=== PATIENT | male | born 2000 | race Hispanic/Latino ===

== ENCOUNTER 2023-11-17 08:10 | Emergency (ER) | payer OTHER ==
[~2023-11-17] VITALS: Ht 172.7 cm; Wt 61.2 kg
[2023-11-17 08:35] VITALS: PULSE 77; RESP 16; TEMP 98.5; O2SAT 100
[2023-11-17 10:42] LABS: BILIRUBIN,URINE NEGATIVE (NEGATIVE); CLARITY,URINE TURBID (CLEAR); COLOR,URINE YELLOW (YELLOW); GLUCOSE, URINE NEGATIVE (NEGATIVE); KETONES,URINE NEGATIVE (NEGATIVE); LEUKOCYTE ESTERASE ,URINE SMALL (NEGATIVE); NITRITE,URINE POSITIVE (NEGATIVE); PH,URINE 8.5 (5 - 7); PROTEIN,URINE DIPSTICK >=300 (NEGATIVE); URINE UROBILINOGEN 0.2 mg/dL (0.2 - 1)
[2023-11-17] MEDS ORDERED: CEFDINIR300 MG PO (10:42)
[2023-11-17 10:56] LABS: BACTERIA,URINE MANY /HPF
[2023-11-17 10:57] LABS: AMORPHOUS SEDIMENT,URINE FEW (FEW); EPITHELIAL CELLS,URINE FEW /LPF; RBC,URINE 21-50 /HPF (0-5)
== END 2023-11-17 11:15 | disposition home or self-care (01) ==
LOC: ER 08:18
DX: R31.9 Hematuria, unspecified (principal); N39.0 Urinary tract infection, site not specified; G82.20 Paraplegia, unspecified
CPT/HCPCS: 51700; 81001; 87086; 87186; 99283

== ENCOUNTER 2023-12-09 16:53 | Emergency (ER) | payer OTHER ==
[~2023-12-09] VITALS: Ht 172.7 cm; Wt 61.2 kg
[~2023-12-09 16:53] MED LIST: CEFDINIR300 MG PO
[2023-12-09] MEDS ORDERED: CEFTRIAXONE 1 GM VIAL IV ONE (17:15)
[2023-12-09 17:47] LABS: BASOPHILS # (AUTO) 0.1 (0.0-0.1); BASOPHILS % 0.3 % (0.0-1.0); EOSINOPHILS # (AUTO) 0.3 (0.0-0.4); EOSINOPHILS % 1.8 % (0.0-6.0); HEMATOCRIT 47.3 % (38.2-49.6); HEMOGLOBIN 16.1 g/dL (14.0-18.0); LYMPHOCYTES # (AUTO) 1.4 (1.0-3.2); LYMPHOCYTES % 8.6 % (18.0-39.1); MEAN CORPUSCULAR HEMOGLOBIN 29.4 pg (28-32); MEAN CORPUSCULAR VOLUME 86.5 fL (81-99); MONOCYTES # (AUTO) 0.8 (0.2-0.8); MONOCYTES % 4.9 % (4.4-11.3); NEUTROPHILS # (AUTO) 13.3 (2.1-6.9); NEUTROPHILS % 83.7 % (38.7-80.0); PLATELET COUNT 283 x10e3/uL (140-360); RED BLOOD COUNT 5.47 x10e6/uL (4.3-5.7); RED CELL DISTRIBUTION WIDTH 12.9 % (11.7-14.4); WHITE BLOOD COUNT 15.86 x10e3/uL (4.8-10.8)
[2023-12-09 18:11] LABS: ALBUMIN 4.6 g/dL (3.5-5.0); ALBUMIN/GLOBULIN RATIO 1.4 (0.8-2.0); BILIRUBIN,TOTAL 0.7 mg/dL (0.2-1.2); CREATININE, SERUM 0.98 mg/dL (0.72-1.25); TOTAL PROTEIN 7.9 g/dL (6.5-8.1)
[2023-12-09 18:15] LABS: INR 0.92; PROTHROMBIN TIME 12.8 seconds (11.9-14.5)
[2023-12-09 18:16] LABS: PARTIAL THROMBOPLASTIN TIME 25.2 seconds (23.8-35.5)
[2023-12-09] MEDS: SODIUM CHLORIDE 0.9% 1000ML 1,000 ML IV STA ×2 (18:33→20:18)
[2023-12-09] MEDS: ACETAMINOPHEN 325 MG TAB PO ONE (18:33)
[2023-12-09 19:18] LABS: BILIRUBIN,URINE NEGATIVE (NEGATIVE); CLARITY,URINE TURBID (CLEAR); COLOR,URINE RED (YELLOW); GLUCOSE, URINE NEGATIVE (NEGATIVE); KETONES,URINE 1+ (NEGATIVE); LEUKOCYTE ESTERASE ,URINE LARGE (NEGATIVE); NITRITE,URINE NEGATIVE (NEGATIVE); PH,URINE 8.5 (5 - 7); PROTEIN,URINE DIPSTICK 2+ (NEGATIVE); URINE UROBILINOGEN 0.2 mg/dL (0.2 - 1)
[2023-12-09 19:19] LABS: BACTERIA,URINE MODERATE /HPF; RBC,URINE >50 /HPF (0-5)
[2023-12-09] MEDS ORDERED: AMOX TR-K CLV1 EAC2 PO (20:04)
[2023-12-09 20:19] VITALS: PULSE 108; RESP 19; TEMP 102.9
[2023-12-09] MEDS ORDERED: SODIUM CHLORIDE 0.9% 1000ML 1,000 ML ONE (20:19)
[2023-12-09] MEDS: IBUPROFEN 600 MG TAB PO STA (20:21)
[2023-12-09 22:12] VITALS: BP 104/57; PULSE 98; RESP 17; TEMP 100; O2SAT 97
== END 2023-12-09 23:16 | disposition home or self-care (01) ==
LOC: ER 17:12
DX: Z46.6 Encounter for fitting and adjustment of urinary device (principal); N39.0 Urinary tract infection, site not specified; R31.9 Hematuria, unspecified; R53.1 Weakness; G82.20 Paraplegia, unspecified
CPT/HCPCS: 36415; 51702; 80053; 81001; 83605; 85025; 85610; 85730; 87040; 87086; 87186; 99284; J2543; J7030; 51700

== ENCOUNTER 2024-01-02 18:35 | Emergency (ER) | payer OTHER ==
[~2024-01-02] VITALS: Ht 172.7 cm; Wt 61.2 kg
[~2024-01-02 18:35] MED LIST changes: +AMOX TR-K CLV1 EAC2 PO
[2024-01-02 18:59] VITALS: PULSE 109; RESP 16; TEMP 98.9
[2024-01-02] MEDS ORDERED: CEFDINIR300 MG PO (19:58)
[2024-01-02 19:59] LABS: BILIRUBIN,URINE NEGATIVE (NEGATIVE); CLARITY,URINE TURBID (CLEAR); COLOR,URINE YELLOW (YELLOW); GLUCOSE, URINE NEGATIVE (NEGATIVE); KETONES,URINE NEGATIVE (NEGATIVE); LEUKOCYTE ESTERASE ,URINE LARGE (NEGATIVE); NITRITE,URINE POSITIVE (NEGATIVE); PH,URINE 8.5 (5 - 7); PROTEIN,URINE DIPSTICK >=300 (NEGATIVE); URINE UROBILINOGEN 0.2 mg/dL (0.2 - 1)
[2024-01-02 20:12] LABS: AMORPHOUS SEDIMENT,URINE MODERATE (FEW); BACTERIA,URINE MODERATE /HPF
[2024-01-02 20:35] VITALS: BP 113/71; PULSE 100; RESP 16; TEMP 98.7; O2SAT 100
== END 2024-01-02 20:28 | disposition home or self-care (01) ==
LOC: ER 19:35
DX: Z46.6 Encounter for fitting and adjustment of urinary device (principal); R11.0 Nausea; R42 Dizziness and giddiness; G82.20 Paraplegia, unspecified
CPT/HCPCS: 51700; 81001; 87086; 87186; 99283

== ENCOUNTER 2024-02-21 21:41 | Emergency (ER) | payer OTHER ==
[~2024-02-21] VITALS: Ht 172.7 cm; Wt 61.2 kg
[2024-02-21 23:01] VITALS: PULSE 81; RESP 20; TEMP 98.5
[2024-02-21 23:38] LABS: BASOPHILS % 0.3 % (0.0-1.0); EOSINOPHILS # (AUTO) 0.2 (0.0-0.4); HEMOGLOBIN 16.7 g/dL (14.0-18.0); LYMPHOCYTES # (AUTO) 2.1 (1.0-3.2); LYMPHOCYTES % 17.6 % (18.0-39.1); MEAN CORPUSCULAR HGB CONC 34.1 g/dL (31-35); MEAN CORPUSCULAR VOLUME 88.1 fL (81-99); MONOCYTES # (AUTO) 0.6 (0.2-0.8); MONOCYTES % 5.4 % (4.4-11.3); NEUTROPHILS # (AUTO) 8.8 (2.1-6.9); NEUTROPHILS % 74.4 % (38.7-80.0); PLATELET COUNT 235 x10e3/uL (140-360); RED BLOOD COUNT 5.56 x10e6/uL (4.3-5.7); RED CELL DISTRIBUTION WIDTH 12.7 % (11.7-14.4); WHITE BLOOD COUNT 11.79 x10e3/uL (4.8-10.8)
[2024-02-22 00:24] LABS: CLARITY,URINE SL CLOUDY (CLEAR); COLOR,URINE YELLOW (YELLOW)
[2024-02-22 00:25] LABS: BILIRUBIN,URINE NEGATIVE (NEGATIVE); GLUCOSE, URINE NEGATIVE (NEGATIVE); KETONES,URINE NEGATIVE (NEGATIVE); LEUKOCYTE ESTERASE ,URINE MODERATE (NEGATIVE); NITRITE,URINE POSITIVE (NEGATIVE); PH,URINE 6 (5 - 7); PROTEIN,URINE DIPSTICK NEGATIVE (NEGATIVE); URINE UROBILINOGEN 0.2 mg/dL (0.2 - 1); WBC,URINE (MAN) >50 /HPF (0-5)
[2024-02-22 00:26] LABS: BACTERIA,URINE MANY /HPF; EPITHELIAL CELLS,URINE FEW /LPF
[2024-02-22 00:52] LABS: ANION GAP 17.8 mmol/L (8-16); CALCIUM 9.6 mg/dL (8.4-10.2); CREATININE, SERUM 0.8 mg/dL (0.72-1.25); POTASSIUM 3.8 mmol/L (3.5-5.1)
[2024-02-22] MEDS ORDERED: CEFDINIR300 MG PO (01:00)
[2024-02-22] MEDS ORDERED: CEFTRIAXONE 1 GM VIAL ONE (01:05)
[2024-02-22 01:29] VITALS: BP 123/77; PULSE 59; RESP 17; TEMP 98.2; O2SAT 100
== END 2024-02-22 01:35 | disposition home or self-care (01) ==
LOC: ER 21:50
DX: R39.198 Other difficulties with micturition (principal); N39.0 Urinary tract infection, site not specified; G82.20 Paraplegia, unspecified; Z87.442 Personal history of urinary calculi
CPT/HCPCS: 36415; 80048; 81001; 83880; 85025; 87086; 87186; 99283; J0696

== ENCOUNTER 2024-06-09 09:11 | Inpatient (IN) | payer OTHER ==
[~2024-06-09] VITALS: Ht 172.7 cm; Wt 56.7 kg
[2024-06-09] VITALS (7 sets, daily range): BP systolic 110–116; BP diastolic 64–70; PULSE 68–75; RESP 16–21; TEMP 98–98.4; O2SAT 96–99
[2024-06-09 11:02] LABS: BASOPHILS # (AUTO) 0.1 (0.0-0.1); BASOPHILS % 0.2 % (0.0-1.0); EOSINOPHILS % 0.1 % (0.0-6.0); HEMATOCRIT 45.3 % (38.2-49.6); HEMOGLOBIN 15.7 g/dL (14.0-18.0); LYMPHOCYTES # (AUTO) 2.2 (1.0-3.2); LYMPHOCYTES % 9.9 % (18.0-39.1); MEAN CORPUSCULAR HEMOGLOBIN 30.5 pg (28-32); MEAN CORPUSCULAR HGB CONC 34.7 g/dL (31-35); MONOCYTES # (AUTO) 1.3 (0.2-0.8); MONOCYTES % 5.8 % (4.4-11.3); NEUTROPHILS # (AUTO) 18.6 (2.1-6.9); NEUTROPHILS % 83.2 % (38.7-80.0); PLATELET COUNT 200 x10e3/uL (140-360); RED BLOOD COUNT 5.15 x10e6/uL (4.3-5.7); RED CELL DISTRIBUTION WIDTH 12.7 % (11.7-14.4); WHITE BLOOD COUNT 22.36 x10e3/uL (4.8-10.8)
[2024-06-09] MEDS: SODIUM CHLORIDE 0.9% 1000ML 2,000 ML IV SCH (11:16)
[2024-06-09 11:18] LABS: INR 1.01; PARTIAL THROMBOPLASTIN TIME 26.5 seconds (23.8-35.5); PROTHROMBIN TIME 13.9 seconds (11.9-14.5)
[2024-06-09 11:22] LABS: CLARITY,URINE SL CLOUDY (CLEAR); COLOR,URINE YELLOW (YELLOW); GLUCOSE, URINE NEGATIVE (NEGATIVE); LEUKOCYTE ESTERASE ,URINE SMALL (NEGATIVE); NITRITE,URINE POSITIVE (NEGATIVE); PH,URINE 5.5 (5 - 7); PROTEIN,URINE DIPSTICK 2+ (NEGATIVE)
[2024-06-09 11:23] LABS: BILIRUBIN,URINE NEGATIVE (NEGATIVE); KETONES,URINE TRACE (NEGATIVE); URINE UROBILINOGEN 0.2 mg/dL (0.2 - 1)
[2024-06-09 11:25] LABS: ALBUMIN 4.6 g/dL (3.5-5.0); ALBUMIN/GLOBULIN RATIO 1.7 (0.8-2.0); ANION GAP 15.7 mmol/L (8-16); BILIRUBIN,TOTAL 1.2 mg/dL (0.2-1.2); CALCIUM 9.2 mg/dL (8.4-10.2); CREATININE, SERUM 0.81 mg/dL (0.72-1.25); POTASSIUM 3.7 mmol/L (3.5-5.1); TOTAL PROTEIN 7.3 g/dL (6.5-8.1)
[2024-06-09 11:49] LABS: BACTERIA,URINE FEW /HPF; EPITHELIAL CELLS,URINE RARE /LPF; RBC,URINE 0-5 /HPF (0-5); WBC,URINE (MAN) >50 /HPF (0-5)
[2024-06-09 12:26] LABS: BAND NEUTROPHILS % (MANUAL) 1 %; LYMPHOCYTES % (MANUAL) 9 % (19-48); MONOCYTES % (MANUAL) 7 % (3.4-9.0); NEUTROPHILS % (MANUAL) 79 % (40-74); PLATELET ESTIMATE ADEQUATE; PLATELET MORPHOLOGY COMMENT NORMAL; RBC MORPHOLOGY COMMENT NORMAL; REACTIVE LYMPHOCYTES 4
[2024-06-09] MEDS ORDERED: SODIUM CHLORIDE FLUSH 10 ML SYR INJ PRN (13:45)
[2024-06-09] MEDS ORDERED: ONDANSETRON HCL INJ 2MG/ML 2ML 2 MG/ML VIAL IV PRN ×2 (13:45→14:00)
[2024-06-09] MEDS ORDERED: IOPAMIDOL 370 MG/ML 100 ML INFUS..BTL INJ ONE (13:51)
[2024-06-09] MEDS ORDERED: BENZONATATE 100 MG CAP PO PRN (14:00)
[2024-06-09] MEDS ORDERED: SIMETHICONE 80 MG CHEW PO PRN (14:00)
[2024-06-09] MEDS ORDERED: LIDOCAINE 4% PATCH TP PRN (14:00)
[2024-06-09] MEDS ORDERED: HYDROCODONE/APAP 5MG-325MG TAB PO PRN (14:00)
[2024-06-09] MEDS ORDERED: DEXTROSE 50% SYRINGE 50 ML IV PRN (14:00)
[2024-06-09] MEDS ORDERED: POTASSIUM CHLORIDE 20 MEQ TAB CR PO PRN (14:00)
[2024-06-09] MEDS ORDERED: HYDRALAZINE HCL 20 MG/ML VIAL IV PRN (14:00)
[2024-06-09] MEDS ORDERED: ACETAMINOPHEN 325 MG TAB PO PRN (14:00)
[2024-06-09] MEDS ORDERED: DIPHENHYDRAMINE HCL 25 MG CAP PO PRN (14:00)
[2024-06-09] MEDS ORDERED: ALBUTEROL/IPRATROPIUM 3 ML NEB NEB PRN (14:00)
[2024-06-09] MEDS ORDERED: DOCUSATE SODIU100 MG PO (16:16)
[2024-06-09] MEDS ORDERED: SENNA8.6 MG PO (16:16)
[2024-06-09] MEDS ORDERED: ASPIRIN325 MG PO (16:16)
[2024-06-09] MEDS ORDERED: VITAMIN D250 MCG PO (16:16)
[2024-06-09] MEDS: ENOXAPARIN SOD INJ 40 MG/0.4 ML SYR SC SCH (16:45)
[2024-06-09] MEDS: SODIUM CHLORIDE 0.9% 1000ML 1,000 ML IV SCH (16:45)
[2024-06-09] MEDS: CEFEPIME 2 GM in SODIUM CHLORIDE 0.9% 100 ML IV SCH (17:33)
[2024-06-09] MEDS ORDERED: MELATONIN 5 MG TABLET PO PRN (21:00)
[2024-06-09] MEDS: BISACODYL 10 MG SUPP PR ONE (23:40)
[2024-06-09] MEDS: BISACODYL 10 MG SUPP PR STA (23:40)
[2024-06-10] VITALS (10 sets, daily range): BP systolic 101–113; BP diastolic 61–70; PULSE 63–86; RESP 17–20; TEMP 97.4–98.6; O2SAT 97–100
[2024-06-10 06:57] LABS: BASOPHILS # (AUTO) 0.1 (0.0-0.1); BASOPHILS % 0.4 % (0.0-1.0); EOSINOPHILS # (AUTO) 0.2 (0.0-0.4); EOSINOPHILS % 1.2 % (0.0-6.0); HEMATOCRIT 38.4 % (38.2-49.6); HEMOGLOBIN 13.1 g/dL (14.0-18.0); LYMPHOCYTES # (AUTO) 2.8 (1.0-3.2); LYMPHOCYTES % 21.4 % (18.0-39.1); MEAN CORPUSCULAR HEMOGLOBIN 30.4 pg (28-32); MEAN CORPUSCULAR HGB CONC 34.1 g/dL (31-35); MEAN CORPUSCULAR VOLUME 89.1 fL (81-99); MONOCYTES # (AUTO) 0.7 (0.2-0.8); MONOCYTES % 5.4 % (4.4-11.3); NEUTROPHILS # (AUTO) 9.2 (2.1-6.9); NEUTROPHILS % 71.2 % (38.7-80.0); PLATELET COUNT 162 x10e3/uL (140-360); RED BLOOD COUNT 4.31 x10e6/uL (4.3-5.7); RED CELL DISTRIBUTION WIDTH 12.7 % (11.7-14.4)
[2024-06-10 07:23] LABS: ALBUMIN 3.6 g/dL (3.5-5.0); ALBUMIN/GLOBULIN RATIO 1.6 (0.8-2.0); ANION GAP 12.1 mmol/L (8-16); BILIRUBIN,TOTAL 0.7 mg/dL (0.2-1.2); CALCIUM 8.8 mg/dL (8.4-10.2); CREATININE, SERUM 0.71 mg/dL (0.72-1.25); POTASSIUM 4.1 mmol/L (3.5-5.1); TOTAL PROTEIN 5.9 g/dL (6.5-8.1)
[2024-06-10] MEDS: PANTOPRAZOLE SOD 40 MG TABEC PO SCH (08:42)
[2024-06-10] MEDS: DOCUSATE SODIUM 100 MG CAP PO PRN (08:42)
[2024-06-10] MEDS: DOCUSATE SODIUM 100 MG CAP PO SCH (14:46)
[2024-06-10] MEDS: BISACODYL 10 MG SUPP PR SCH (20:53)
[2024-06-11] VITALS (11 sets, daily range): BP systolic 103–113; BP diastolic 61–75; PULSE 54–112; RESP 16–19; TEMP 98–98.9; O2SAT 98–100
[2024-06-11 06:56] LABS: BASOPHILS % 0.4 % (0.0-1.0); EOSINOPHILS # (AUTO) 0.2 (0.0-0.4); EOSINOPHILS % 2.1 % (0.0-6.0); HEMATOCRIT 37.6 % (38.2-49.6); HEMOGLOBIN 13.2 g/dL (14.0-18.0); LYMPHOCYTES # (AUTO) 1.9 (1.0-3.2); LYMPHOCYTES % 25.1 % (18.0-39.1); MEAN CORPUSCULAR HEMOGLOBIN 30.3 pg (28-32); MEAN CORPUSCULAR HGB CONC 35.1 g/dL (31-35); MEAN CORPUSCULAR VOLUME 86.2 fL (81-99); MONOCYTES # (AUTO) 0.5 (0.2-0.8); MONOCYTES % 6.4 % (4.4-11.3); NEUTROPHILS % 65.2 % (38.7-80.0); PLATELET COUNT 161 x10e3/uL (140-360); RED BLOOD COUNT 4.36 x10e6/uL (4.3-5.7); RED CELL DISTRIBUTION WIDTH 12.5 % (11.7-14.4); WHITE BLOOD COUNT 7.65 x10e3/uL (4.8-10.8)
[2024-06-11 07:31] LABS: ANION GAP 11.5 mmol/L (8-16); CALCIUM 8.5 mg/dL (8.4-10.2); CREATININE, SERUM 0.63 mg/dL (0.72-1.25); POTASSIUM 3.5 mmol/L (3.5-5.1)
[2024-06-11] MEDS: ASPIRIN 325 MG TAB PO SCH (08:29)
[2024-06-11] MEDS: SENNOSIDES 8.6 MG TAB PO SCH (08:29)
[2024-06-11] MEDS: DOCUSATE SODIUM 100 MG CAP PO SCH (10:08)
[2024-06-12] VITALS (7 sets, daily range): BP systolic 105–115; BP diastolic 64–75; PULSE 49–78; RESP 16–18; TEMP 97.5–98.2; O2SAT 97–100
[2024-06-12] MEDS ORDERED: MEROPENEM1 GM IM/IV (14:26)
== END 2024-06-12 18:15 | disposition home health service (06) | DRG 698 ==
LOC: ER 10:20 → ERHOLD 13:45 → MED/SURG3 16:43 → OBSVTOIN 06-12 11:05
PROVIDERS: ADMIT Internal Medicine; ATTEND Internal Medicine
PROC: 02HV33Z Insertion of Infusion Device into Superior Vena Cava, Percutaneous Approach (ICD-10-PCS; principal; 2024-06-11)
DX: T83.518A Infection and inflammatory reaction due to other urinary catheter, initial encounter (principal); A41.51 Sepsis due to Escherichia coli [E. coli]; Z16.12 Extended spectrum beta lactamase (ESBL) resistance; N39.0 Urinary tract infection, site not specified; Z16.24 Resistance to multiple antibiotics; N12 Tubulo-interstitial nephritis, not specified as acute or chronic; G82.20 Paraplegia, unspecified; S24.109S Unspecified injury at unspecified level of thoracic spinal cord, sequela; N31.9 Neuromuscular dysfunction of bladder, unspecified; V89.9XXS Person injured in unspecified vehicle accident, sequela; Z98.1 Arthrodesis status; Z79.82 Long term (current) use of aspirin; F17.200 Nicotine dependence, unspecified, uncomplicated; Y84.6 Urinary catheterization as the cause of abnormal reaction of the patient, or of later complication, without mention of misadventure at the time of the procedure
CPT/HCPCS: 36415; 36568; 72132; 74177; 80048; 80053; 81001; 83605; 85025; 85610; 85730; 87040; 87086; 87186; 93005; 94799; 99284; G0378; J0692; J0696; J1650; J2185; J7030; J7050; Q9967

== ENCOUNTER 2024-06-28 16:10 | Emergency (ER) | payer OTHER ==
[~2024-06-28] VITALS: Ht 172.7 cm; Wt 56.7 kg
[~2024-06-28 16:10] MED LIST changes: +ASPIRIN325 MG PO; +DOCUSATE SODIU100 MG PO; +MEROPENEM1 GM IM/IV; +SENNA8.6 MG PO; +VITAMIN D250 MCG PO
[2024-06-28 16:31] VITALS: PULSE 69; RESP 16; TEMP 97.8; O2SAT 99
[2024-06-28 16:56] LABS: BASOPHILS % 0.6 % (0.0-1.0); EOSINOPHILS # (AUTO) 0.2 (0.0-0.4); EOSINOPHILS % 2.6 % (0.0-6.0); HEMATOCRIT 46.4 % (38.2-49.6); HEMOGLOBIN 16.3 g/dL (14.0-18.0); LYMPHOCYTES # (AUTO) 2.1 (1.0-3.2); LYMPHOCYTES % 31.8 % (18.0-39.1); MEAN CORPUSCULAR HEMOGLOBIN 30.1 pg (28-32); MEAN CORPUSCULAR HGB CONC 35.1 g/dL (31-35); MEAN CORPUSCULAR VOLUME 85.8 fL (81-99); MONOCYTES # (AUTO) 0.3 (0.2-0.8); MONOCYTES % 4.3 % (4.4-11.3); NEUTROPHILS # (AUTO) 3.9 (2.1-6.9); NEUTROPHILS % 60.5 % (38.7-80.0); PLATELET COUNT 264 x10e3/uL (140-360); RED BLOOD COUNT 5.41 x10e6/uL (4.3-5.7); RED CELL DISTRIBUTION WIDTH 12.5 % (11.7-14.4); WHITE BLOOD COUNT 6.47 x10e3/uL (4.8-10.8)
[2024-06-28 17:13] LABS: INR 0.95; PROTHROMBIN TIME 13.3 seconds (11.9-14.5)
[2024-06-28] MEDS ORDERED: IOPAMIDOL 370 MG/ML 100 ML INFUS..BTL INJ ONE (17:13)
[2024-06-28 17:14] LABS: PARTIAL THROMBOPLASTIN TIME 25.7 seconds (23.8-35.5)
[2024-06-28] MEDS: ONDANSETRON HCL INJ 2MG/ML 2ML 2 MG/ML VIAL IV STA (17:16)
[2024-06-28] MEDS: SODIUM CHLORIDE 0.9% 1000ML 1,000 ML IV STA (17:16)
[2024-06-28 17:18] LABS: BILIRUBIN,URINE NEGATIVE (NEGATIVE); CLARITY,URINE CLOUDY (CLEAR); COLOR,URINE YELLOW (YELLOW); GLUCOSE, URINE NEGATIVE (NEGATIVE); KETONES,URINE NEGATIVE (NEGATIVE); LEUKOCYTE ESTERASE ,URINE 1+ (NEGATIVE); NITRITE,URINE NEGATIVE (NEGATIVE); PH,URINE 6 (5 - 7); PROTEIN,URINE DIPSTICK 1+ (NEGATIVE); URINE UROBILINOGEN 0.2 mg/dL (0.2 - 1)
[2024-06-28 17:23] LABS: ALBUMIN 4.8 g/dL (3.5-5.0); ALBUMIN/GLOBULIN RATIO 1.7 (0.8-2.0); ANION GAP 16.9 mmol/L (8-16); BILIRUBIN,TOTAL 0.7 mg/dL (0.2-1.2); CALCIUM 9.9 mg/dL (8.4-10.2); CREATININE, SERUM 0.82 mg/dL (0.72-1.25); MAGNESIUM 2.1 MG/DL (1.3-2.1); POTASSIUM 3.9 mmol/L (3.5-5.1); TOTAL PROTEIN 7.7 g/dL (6.5-8.1)
[2024-06-28 17:33] LABS: AMORPHOUS SEDIMENT,URINE MANY; BACTERIA,URINE MANY /HPF; EPITHELIAL CELLS,URINE FEW /LPF; RBC,URINE 0-5 /HPF (0-5); WBC,URINE (MAN) 0-5 /HPF (0-5)
[2024-06-28] MEDS ORDERED: AUGMENTIN 500-1 EACH PO (18:36)
== END 2024-06-28 19:04 | disposition home or self-care (01) ==
LOC: ER 16:25
DX: R10.32 Left lower quadrant pain (principal); N39.0 Urinary tract infection, site not specified; G82.20 Paraplegia, unspecified
CPT/HCPCS: 36415; 51702; 74177; 80053; 81001; 83690; 83735; 85025; 85610; 85730; 87086; 87186; 99284; J2405; J2470; J7030; Q9967; 51700

== ENCOUNTER 2024-08-06 17:07 | Emergency (ER) | payer OTHER ==
[~2024-08-06] VITALS: Ht 172.7 cm; Wt 56.7 kg
[~2024-08-06 17:07] MED LIST changes: +AUGMENTIN 500-1 EACH PO
[2024-08-06 19:15] VITALS: PULSE 90; RESP 18; TEMP 98.5
[2024-08-06 20:13] LABS: COLOR,URINE YELLOW (YELLOW)
[2024-08-06 20:14] LABS: CLARITY,URINE CLOUDY (CLEAR); GLUCOSE, URINE NEGATIVE (NEGATIVE); KETONES,URINE NEGATIVE (NEGATIVE); LEUKOCYTE ESTERASE ,URINE LARGE (NEGATIVE); NITRITE,URINE NEGATIVE (NEGATIVE); PH,URINE 6 (5 - 7); PROTEIN,URINE DIPSTICK NEGATIVE (NEGATIVE)
[2024-08-06 20:15] LABS: BILIRUBIN,URINE NEGATIVE (NEGATIVE); URINE UROBILINOGEN 0.2 mg/dL (0.2 - 1)
[2024-08-06 20:25] LABS: BACTERIA,URINE MANY /HPF; EPITHELIAL CELLS,URINE FEW /LPF; RBC,URINE 21-50 /HPF (0-5); RENAL EPITHELIAL CELLS,URINE FEW; WBC,URINE (MAN) >50 /HPF (0-5)
[2024-08-06 21:13] VITALS: BP 126/89; PULSE 73; RESP 17; TEMP 98; O2SAT 100
== END 2024-08-06 21:11 | disposition home or self-care (01) ==
LOC: ER 17:48
DX: R30.0 Dysuria (principal); N39.0 Urinary tract infection, site not specified; G82.20 Paraplegia, unspecified
CPT/HCPCS: 81001; 99283

== ENCOUNTER 2024-08-26 18:19 | Emergency (ER) | payer OTHER ==
[~2024-08-26] VITALS: Ht 172.7 cm; Wt 56.7 kg
[2024-08-26 19:55] LABS: BASOPHILS % 0.4 % (0.0-1.0); EOSINOPHILS # (AUTO) 0.4 (0.0-0.4); EOSINOPHILS % 5.9 % (0.0-6.0); HEMATOCRIT 46.6 % (38.2-49.6); HEMOGLOBIN 16.2 g/dL (14.0-18.0); LYMPHOCYTES # (AUTO) 2.1 (1.0-3.2); LYMPHOCYTES % 29.7 % (18.0-39.1); MEAN CORPUSCULAR HGB CONC 34.8 g/dL (31-35); MEAN CORPUSCULAR VOLUME 86.3 fL (81-99); MONOCYTES # (AUTO) 0.3 (0.2-0.8); MONOCYTES % 4.5 % (4.4-11.3); NEUTROPHILS # (AUTO) 4.2 (2.1-6.9); NEUTROPHILS % 59.1 % (38.7-80.0); PLATELET COUNT 229 x10e3/uL (140-360); WHITE BLOOD COUNT 7.14 x10e3/uL (4.8-10.8)
[2024-08-26 20:11] LABS: BILIRUBIN,URINE NEGATIVE (NEGATIVE); CLARITY,URINE HAZY (CLEAR); COLOR,URINE YELLOW (YELLOW); GLUCOSE, URINE NEGATIVE (NEGATIVE); KETONES,URINE NEGATIVE (NEGATIVE); LEUKOCYTE ESTERASE ,URINE MODERATE (NEGATIVE); NITRITE,URINE POSITIVE (NEGATIVE); PH,URINE 5.5 (5 - 7); PROTEIN,URINE DIPSTICK 1+ (NEGATIVE); URINE UROBILINOGEN 0.2 mg/dL (0.2 - 1)
[2024-08-26 20:14] LABS: WBC,URINE (MAN) >50 /HPF (0-5)
[2024-08-26 20:15] LABS: ALBUMIN 4.8 g/dL (3.5-5.0); ALBUMIN/GLOBULIN RATIO 1.8 (0.8-2.0); ANION GAP 15.8 mmol/L (8-16); BILIRUBIN,TOTAL 0.5 mg/dL (0.2-1.2); CALCIUM 9.6 mg/dL (8.4-10.2); CREATININE, SERUM 0.78 mg/dL (0.72-1.25); POTASSIUM 3.8 mmol/L (3.5-5.1); TOTAL PROTEIN 7.5 g/dL (6.5-8.1)
[2024-08-26 20:15] LABS: BACTERIA,URINE MANY /HPF; EPITHELIAL CELLS,URINE RARE /LPF
[2024-08-26 21:38] VITALS: PULSE 60; RESP 16; TEMP 98.5; O2SAT 100
== END 2024-08-26 21:38 | disposition home or self-care (01) ==
LOC: ER 18:31
DX: R30.0 Dysuria (principal); N39.0 Urinary tract infection, site not specified; R10.30 Lower abdominal pain, unspecified
CPT/HCPCS: 36415; 74176; 80053; 81001; 85025; 87086; 87186; 99284

== ENCOUNTER 2024-12-07 12:54 | Emergency (ER) | payer OTHER ==
[~2024-12-07] VITALS: Ht 172.7 cm; Wt 61.2 kg
[~2024-12-07 12:54] MED LIST changes: +CEFUROXIME500 MG PO
[2024-12-07 13:01] VITALS: TEMP 98.1
[2024-12-07] MEDS: ONDANSETRON HCL 4 MG ORAL DISINTEGRATING TAB PO ONE (14:09)
[2024-12-07] MEDS: IBUPROFEN 600 MG TAB PO STA (14:22)
[2024-12-07] MEDS: HYDROCODONE/APAP 5MG-325MG TAB PO ONE (14:22)
[2024-12-07] MEDS: ORPHENADRINE CITRATE 30 MG/ML VIAL IM ONE (16:20)
[2024-12-07] MEDS ORDERED: METHOCARBAMOL750 MG PO (16:24)
[2024-12-07 16:26] VITALS: PULSE 70; RESP 16
[2024-12-07 16:41] VITALS: BP 111/58; O2SAT 100
== END 2024-12-07 16:40 | disposition home or self-care (01) ==
LOC: ER 13:07
DX: S39.012A Strain of muscle, fascia and tendon of lower back, initial encounter (principal); M62.830 Muscle spasm of back; G82.20 Paraplegia, unspecified
CPT/HCPCS: 72131; 72192; 99283; J2360; Q0162

== ENCOUNTER 2024-12-22 23:32 | Emergency (ER) | payer OTHER ==
[~2024-12-22] VITALS: Ht 172.7 cm; Wt 61.2 kg
[~2024-12-22 23:32] MED LIST changes: +METHOCARBAMOL750 MG PO
[2024-12-23 00:07] VITALS: PULSE 88; RESP 16; TEMP 99; O2SAT 100
[2024-12-23 00:44] LABS: BASOPHILS % 0.5 % (0.0-1.0); EOSINOPHILS % 1.0 % (0.0-6.0); LYMPHOCYTES % 25.5 % (18.0-39.1); MONOCYTES % 4.6 % (4.4-11.3); NEUTROPHILS % 68.0 % (38.7-80.0); RED CELL DISTRIBUTION WIDTH 12.7 % (11.7-14.4)
[2024-12-23 04:52] LABS: EST GLOMERULAR FILTRATION RATE 124 ML/MIN (>=60)
[2024-12-23 05:39] LABS: EPITHELIAL CELLS,URINE FEW /LPF; LEUKOCYTE ESTERASE ,URINE NEGATIVE (NEGATIVE); PROTEIN,URINE DIPSTICK NEGATIVE (NEGATIVE); URINE UROBILINOGEN 0.2 mg/dL (0.2 - 1); WBC,URINE (MAN) 0-5 /HPF (0-5)
== END 2024-12-23 03:05 | disposition home or self-care (01) ==
LOC: ER 23:45
DX: R00.2 Palpitations (principal); G82.20 Paraplegia, unspecified
CPT/HCPCS: 36415; 71045; 80053; 81001; 82550; 83690; 83880; 84484; 85025; 93005; 99284

== ENCOUNTER 2024-12-29 16:55 | Emergency (ER) | payer OTHER ==
[~2024-12-29] VITALS: Ht 172.7 cm; Wt 61.2 kg
[2024-12-29 18:05] LABS: CORONAVIRUS COVID-19 AG POSITIVE (NEGATIVE)
[2024-12-29 19:01] LABS: STREPTOCOCCUS GRP A ANTIGEN NEGATIVE (NEGATIVE)
[2024-12-29] MEDS ORDERED: PAXLOVID 300-11 EAC1 PO (19:16)
[2024-12-29 19:30] VITALS: PULSE 86; RESP 16; TEMP 98.5; O2SAT 97
== END 2024-12-29 19:45 | disposition home or self-care (01) ==
LOC: ER 17:40
DX: R05.9 Cough, unspecified (principal); U07.1 COVID-19; G82.20 Paraplegia, unspecified
CPT/HCPCS: 83518; 87070; 99283

== ENCOUNTER 2025-02-04 09:59 | Emergency (ER) | payer OTHER ==
[~2025-02-04] VITALS: Ht 172.7 cm; Wt 61.2 kg
[~2025-02-04 09:59] MED LIST changes: +PAXLOVID 300-11 EAC1 PO
[2025-02-04 10:26] VITALS: PULSE 76; RESP 17; TEMP 97.7
[2025-02-04] MEDS ORDERED: FLUCONAZOLE100 MG PO (10:51)
[2025-02-04] MEDS ORDERED: CLOTRIMAZOLE45 GM TOP (10:51)
[2025-02-04 11:21] VITALS: BP 119/83; RESP 17; O2SAT 100
== END 2025-02-04 11:15 | disposition home or self-care (01) ==
LOC: ER 10:05
DX: N47.6 Balanoposthitis (principal); B37.89 Other sites of candidiasis; G82.20 Paraplegia, unspecified
CPT/HCPCS: 99282